=== PATIENT | female | born 1980 | race Caucasian/White ===

== ENCOUNTER 2017-05-21 23:53 | Emergency (ER) | payer OTHER ==
[~2017-05-21] VITALS: Ht 165.1 cm; Wt 100.5 kg
[~2017-05-21 23:53] MED LIST: ACET325T96 PO; IBUP-103 PO; SUMA100T16 PO
[2017-05-21 23:55] VITALS: TEMP 36.7; Ht 165.1 cm; Wt 100.5 kg
[2017-05-22] MEDS ORDERED: PROPARACAINE HCL 0.5% OP SOLN 15 ML BTL ONE (00:12)
[2017-05-22] MEDS ORDERED: KETOROLAC TROMETHAMINE 30 MG/ML VIAL IV STA (00:15)
--- NOTE | 2017-05-22 00:23 | EMERGENCY ROOM VISIT NOTE ---
History Report prepared by Santy: Fredo Mary Under the Supervision of: Dr. Sheree Davila D.O. First contact with patient: 00:02 Chief Complaint: EYE ASSESSMENT Stated Complaint: EYE PAIN/NECK History of Present Illness The patient is a 36 year old female who presents to the Emergency Room for a left eye assessment. Last week, the patient noticed a small bump on her left eye lid. She then realized that there was a tick imbedded in that area. She successfully dug it out and removed it. She had swelling in the area for two days, but then began to go down. A couple of days ago, her eye began to swell again. She went to Urgent Care and was prescribed oral Doxycycline and an Erithromycin ointment. She was told to go to the ER if she began to experience pain in this area. She recently began to experience pain in this area that radiates to her head and her neck. Her pain worsens with eye movement. She is experiencing heat flashes and chills as well. She denies any cough, sore throat , or abdominal pain. She does not have any health problems. Source of History: patient Onset: 1 week ago Position: eye (left) Symptom Intensity: moderate Quality: other (Discomfort) Timing: worsening Modifying Factors (Worsening): movement Associated Symptoms: + chills, + headache, + neck pain, No sorethroat, No cough, No abdominal pain Review of Systems See HPI for pertinent positives & negatives. A total of 10 systems reviewed and were otherwise negative. Past Medical & Surgical Medical Problems: (1) Headache (2) Headache (3) IRRITABLE BOWEL SYNDROME (4) (5) Pyelonephritis (6) Pyelonephritis (7) Pyelonephritis Nos (8) Rupture of membranes (9) UTI (urinary tract infection) (10) UTI (urinary tract infection) Surgical Problems: (1) Appendicitis (2) History of appendectomy (3) Laceration (4) [place] teeth removed Family History Diabetes mellitus FHx: cancer FHx: gallbladder disease FHx: heart disease Hypertension Kidney disease Social History Smoking Status: Never Smoker Alcohol Use: none Marital Status: single Occupation Status: unemployed Current/Historical Medications Scheduled Cephalexin Monohydrate (Keflex), 500 MG PO BID Doxycycline Monohydrate (Monodox), 100 MG PO DAILY Erythromycin Opth (Erythromycin Opth), 1 APPLN OPL DIRECTED Ibuprofen Tab (Advil), 200-600 MG PO Q4H Prednisone (Prednisone Tab), 20 MG PO DAILY Sulfamethoxazole-Trimethoprim (Bactrim Ds 800MG/160MG), 1 TAB PO BID Scheduled PRN Acetaminophen Tab (Tylenol), 650 MG PO Q6 PRN for Pain Sumatriptan Succinate (Imitrex), 100 MG PO PRN PRN for Migraine Allergies Coded Allergies: No Known Allergies (Unverified , 05/22/17) Physical Exam Vital Signs Date Time Temp Pulse Resp B/P (MAP) Pulse Ox O2 Delivery O2 Flow Rate FiO2 05/22/17 02:40 76 16 109/79 98 05/22/17 01:38 85 16 118/78 96 Room Air 05/22/17 00:39 82 05/21/17 23:55 36.7 88 18 144/93 98 Room Air Physical Exam HEENT: Head - normocephalic and atraumatic Pupils are equal, round, and reactive to light. Extraocular eye muscles are intact, and moderate sclera injection. Left lower eyelid has a carbuncle present that has come to a head and is white in color. Significant surrounding erythema and edema. Upper eyelid is normal. Discomfort over the lateral aspect of the left eye, tracking out toward the ear. Ears - Normal TMs. Nose - moist nasal mucosa without discharge. Mouth - moist buccal mucosa. Oropharynx is nonerythematous and there is no tonsillar exudate or edema noted. Neck: Supple; No nuchal rigidity; there is moderate anterior cervical lymphadenopathy on the left. Heart: Regular rate and rhythm. There is a normal S1 and S2 with no murmurs, clicks, or gallops appreciated. Lungs: Clear to auscultation bilaterally with no wheezes, rales, or rhonchi. Abdomen: Soft, completely nontender, nondistended, with good bowel sounds. There are no palpable pulsatile masses or hepatosplenomegaly. There is no guarding, rigidity, or rebound noted. Extremities: No evidence of cyanosis, clubbing, or edema. There are easily palpable peripheral pulses. Skin: warm and dry with good turgor and no rashes. Neuro: Normal forehead wrinkle. Medical Decision & Procedures Laboratory Results 05/22/17 00:15 Red Blood Count 5.07, Mean Corpuscular Volume 82.8, Mean Corpuscular Hemoglobin 29.6, Mean Corpuscular Hemoglobin Concent 35.7, Mean Platelet Volume 10.0, Neutrophils (%) (Auto) 55.0, Lymphocytes (%) (Auto) 34.0, Monocytes (%) (Auto) 7.2, Eosinophils (%) (Auto) 3.1, Basophils (%) (Auto) 0.5, Neutrophils # (Auto) 5.54, Lymphocytes # (Auto) 3.43, Monocytes # (Auto) 0.73, Eosinophils # (Auto) 0.31, Basophils # (Auto) 0.05 Test 05/22/17 00:15 White Blood Count 10.08 K/uL (4.8-10.8) Red Blood Count 5.07 M/uL (4.2-5.4) Hemoglobin 15.0 g/dL (12.0-16.0) Hematocrit 42.0 % (37-47) Mean Corpuscular Volume 82.8 fL (80-100) Mean Corpuscular Hemoglobin 29.6 pg (25-34) Mean Corpuscular Hemoglobin Concent 35.7 g/dl (32-36) Platelet Count 365 K/uL (130-400) Mean Platelet Volume 10.0 fL (7.4-10.4) Neutrophils (%) (Auto) 55.0 % Lymphocytes (%) (Auto) 34.0 % Monocytes (%) (Auto) 7.2 % Eosinophils (%) (Auto) 3.1 % Basophils (%) (Auto) 0.5 % Neutrophils # (Auto) 5.54 K/uL (1.4-6.5) Lymphocytes # (Auto) 3.43 K/uL (1.2-3.4) Monocytes # (Auto) 0.73 K/uL (0.11-0.59) Eosinophils # (Auto) 0.31 K/uL (0-0.5) Basophils # (Auto) 0.05 K/uL (0-0.2) RDW Standard Deviation 39.7 fL (36.4-46.3) RDW Coefficient of Variation 13.3 % (11.5-14.5) Immature Granulocyte % (Auto) 0.2 % Immature Granulocyte # (Auto) 0.02 K/uL (0.00-0.02) Lyme Disease IgG Antibody NEG (NEG) Laboratory results per my review. Medications Administered Medications (Trade) Dose Ordered Sig/Yovani Route Start Time Stop Time Status Last Admin Dose Admin Ketorolac Tromethamine (Toradol Inj) 30 mg NOW STAT IV 05/22/17 00:15 05/22/17 00:17 DC 05/22/17 00:28 30 MG Hydromorphone HCl (Dilaudid Inj) 1 mg NOW STAT IV 05/22/17 01:21 05/22/17 01:22 DC 05/22/17 01:35 1 MG Procedure Slit Lamp Examination Indication: Infection to the left eyelid The left eye was prepped with topical proparacaine. Slit lamp examination was performed in the standard fashion. Cornea appeared clear no obvious corneal abrasion.. Anterior chamber was quiet. Scleral injection was present. There was some discharge noted from the lesion on the lower eyelid. Fluorescein examination performed and revealed no uptake of the stain from a corneal abrasion. No foreign bodies noted. Negative Kaitlin sign. The patient tolerated the procedure well without complication. Proparacaine HCl 225 drops .ROUTE Toradol Inj 30 mg IV Dilaudid Inj 1 mg IV ED Course 0002: Past medical records reviewed. The patient was evaluated in room A12. A complete history and physical exam was performed. An IV lock was initiated and labs were drawn as above. 0015: Ordered Toradol Inj 30 mg IV 0100: I performed a Slit Lamp examination at this time. Please see the procedure note for more information. 0115: The patient informed me that she had no relief of her pain with the Toradol. I will order her something else. 0121: Ordered Dilaudid Inj 1 mg IV 0230: Upon reevaluation, resting. I discussed findings and results with her. She verbalized agreement of the treatment plan. She was discharged home. Medical Decision The patient is a 36 year old female who presents to the ED for an eye assessment. Differential diagnosis includes eyelid abscess, periorbital cellulitis, orbital cellulitis, facial cellulitis, and lyme disease. I attest that I have personally reviewed the patient's current medication list. Patient was found to have normal blood pressure on screening and does not require follow-up. Laboratory Results: Normal white blood cell count, stable H&H, and lyme is equivocal high. The patient will continue the doxycycline and called back in for results of the Western blot for Lyme. I've decided to start the patient on Keflex and Bactrim for the small abscess on the left lower eyelid. She was also continued to encourage the erythromycin ointment the patient was told to return here to the emergency department if she felt worsening symptoms. Otherwise, she can follow up with her PCP. Impression Primary Impression: Tick bite Additional Impression: Infected eye lid Scribe Attestation The scribe's documentation has been prepared under my direction and personally reviewed by me in its entirety. I confirm that the note above accurately reflects all work, treatment, procedures, and medical decision making performed by me. Departure Information Dispostion Home / Self-Care Prescriptions Sulfamethoxazole-Trimethoprim (Bactrim Ds 800MG/160MG) 1 Tab Tab 1 TAB PO BID, #14 TAB Prov: Sheree Davila D.O. 05/22/17 Cephalexin Monohydrate (KEFLEX) 500 Mg Cap 500 MG PO BID, #14 CAP Prov: Sheree Davila D.O. 05/22/17 Referrals Mook Gomez M.D. (PCP) Forms HOME CARE DOCUMENTATION FORM, IMPORTANT VISIT INFORMATION, WORK / SCHOOL INSTRUCTIONS Patient Instructions My [facility] Additional Instructions Rest Take probiotics and yogurt finish doxycycline - call in 3 days for results of Lyme test [phone] Start keflex every 12 hours and bactrim every 12 hours continue ointment in the eye Problem Qualifiers Primary Impression: Tick bite Encounter type: subsequent encounter Qualified Codes: W57.XXXD - Bitten or stung by nonvenomous insect and other nonvenomous arthropods, subsequent encounter
[2017-05-22] MEDS ORDERED: PRED20TA2 PO (00:28)
[2017-05-22] MEDS ORDERED: ERYOPO OPL (00:28)
[2017-05-22] MEDS ORDERED: DOXY100C76 PO (00:28)
[2017-05-22 00:34] LABS: BASO % 0.5 %; BASO ABS # 0.05 K/uL (0-0.2); COMPLETE YES; EOS % 3.1 %; IG% 0.2 %; LYMPH ABS # 3.43 K/uL (1.2-3.4); MEAN CELL VOLUME 82.8 fL (80-100); MEAN CORPUSCULAR HEMOGLOBIN 29.6 pg (25-34); MEAN CORPUSCULAR HGB CONC 35.7 g/dl (32-36); MONO % 7.2 %; PLATELET COUNT 365 K/uL (130-400); RED BLOOD COUNT 5.07 M/uL (4.2-5.4); WHITE BLOOD COUNT 10.08 K/uL (4.8-10.8)
[2017-05-22] MEDS ORDERED: HYDROmorphone INJ 1 MG/ML SYR IV STA (01:21)
[2017-05-22 01:26] LABS: LYME DISEASE AB IGG NEG (NEG)
[2017-05-22 01:32] LABS: LYME DISEASE AB IGM EQUIVOCAL (NEG)
[2017-05-22] MEDS ORDERED: SULF800T23 PO (02:33)
[2017-05-22] MEDS ORDERED: CEPH500C2 PO (02:33)
[2017-05-22 02:40] VITALS: BP 109/79; PULSE 76; O2SAT 98
[2017-05-27 19:16] LABS: 18KDIGG BAND NONREACTIVE (NONREACTIVE); 23KDIGG BAND NONREACTIVE (NONREACTIVE); 23KDIGM BAND REACTIVE (NONREACTIVE); 28KDIGG BAND NONREACTIVE (NONREACTIVE); 30KDIGG BAND NONREACTIVE (NONREACTIVE); 39KDIGG BAND NONREACTIVE (NONREACTIVE); 39KDIGM BAND NONREACTIVE (NONREACTIVE); 41KDIGG BAND NONREACTIVE (NONREACTIVE); 41KDIGM BAND REACTIVE (NONREACTIVE); 45KDIGG BAND NONREACTIVE (NONREACTIVE); 58KDIGG BAND NONREACTIVE (NONREACTIVE); 66KDIGG BAND REACTIVE (NONREACTIVE); 93KDIGG BAND NONREACTIVE (NONREACTIVE)
== END 2017-05-22 02:40 | disposition home or self-care (01) ==
LOC: C.EDB 23:54 → C.EDA 05-22 02:40
DX: S00.262A Insect bite (nonvenomous) of left eyelid and periocular area, initial encounter (principal); H01.8 Other specified inflammations of eyelid; H57.12 Ocular pain, left eye; M54.2 Cervicalgia; R51 Headache; W57.XXXA Bitten or stung by nonvenomous insect and other nonvenomous arthropods, initial encounter

== ENCOUNTER → 2018-06-30 | Outpatient (CLI) | payer OTHER ==
[~2018-06-30] MED LIST changes: +ACET-1693 PO; -ACET325T96 PO; +DOXY100C76 PO; +ERYOPO OPL; +OPTIRAY 320 IV PRN; +PRED20TA2 PO
--- NOTE | 2018-06-30 07:52 | DIAGNOSTIC IMAGING REPORT ---
CT SCAN OF THE NECK WITH IV CONTRAST CLINICAL HISTORY: Lymphadenopathy. COMPARISON STUDY: CT scan of the facial bones dated 10/22/2009. TECHNIQUE: Following the IV administration of 91 cc of Optiray 320, CT scan of the soft tissues of the neck was performed from the skull base to the upper chest. Images are reviewed in the axial, sagittal, and coronal planes. IV contrast was administered without complication. A dose lowering technique was utilized adhering to the principles of ALARA. FINDINGS: Pharynx: The nasopharynx, oropharynx, and laryngeal pharynx are normal in appearance. The pharyngeal airway is widely patent. There is no evidence of mass lesion. The vocal cords are symmetric. The parapharyngeal fat is well maintained. The prevertebral/retropharyngeal soft tissues are within normal limits. The epiglottis is normal. Lymphadenopathy: No cervical lymphadenopathy is seen Thyroid: Normal in size and attenuation. Salivary glands: The parotid and submandibular glands are within normal limits. Brain parenchyma: The visualized brain parenchyma at the skull base is normal in appearance. Vascular structures: The carotid arteries and jugular veins are patent bilaterally. Skeletal structures: Imaged portions of the calvarium at the skull base are within normal limits. The cervical spine appears intact. The patient is edentulous. No lytic or blastic lesion is seen. Sinuses and mastoids: The visualized paranasal sinuses are clear. The mastoid air cells are well pneumatized. Orbits: The bony orbits are intact. Orbital contents are normal in appearance. Lung apices: Visualized apical lung parenchyma is clear. IMPRESSION: 1. No acute abnormality is identified. 2. Specifically, there is no evidence of cervical lymphadenopathy as clinically queried. Electronically signed by: Raimundo Georges M.D. 06/30/2018 7:51 AM Dictated Date/Time: 06/30/2018 7:47 AM
--- NOTE | 2018-06-30 08:36 | DIAGNOSTIC IMAGING REPORT ---
CHEST CT WITH CONTRAST CT DOSE: 1300.85 mGy.cm HISTORY: LYMPHADENOPATHY TECHNIQUE: Multiaxial CT images of the chest were performed following the intravenous administration of contrast. A dose lowering technique was utilized adhering to the principles of ALARA. COMPARISON: Chest CTA 04/02/2010. FINDINGS: The lungs are clear. The mediastinal vascular structures are within normal limits. No mediastinal or hilar lymphadenopathy. No pleural effusion or pneumothorax. No supraclavicular or axillary lymphadenopathy. Hepatic steatosis. The visualized spleen and adrenal glands are unremarkable. IMPRESSION: No significant abnormality identified within the chest. Specifically, no lymphadenopathy. Electronically signed by: Bart Reyes M.D. 06/30/2018 8:35 AM Dictated Date/Time: 06/30/2018 8:25 AM
== END | disposition home or self-care (01) ==
LOC: C.CTS 06:22
PROVIDERS: ATTEND Physician Assistant
DX: R59.1 Generalized enlarged lymph nodes (principal); R59.0 Localized enlarged lymph nodes